=== PATIENT | female | born 1940 | race African-American/Black ===

== ENCOUNTER 2019-01-24 15:59 | Inpatient (IN) | payer MEDICARE ==
[~2019-01-24] VITALS: Ht 162.6 cm; Wt 51.7 kg
--- NOTE | 2019-01-24 16:23 | NUR ---
GABRIELA Staff From [facility] "agressive behavior,combative,dementia here for evaluation". PT CURRENTLY CALM AND COOPERATIVE. AOX3, AMB, VSS, RR EVEN AND UNLABORED. SKIN INTACT, NO ACUTE DISTRESS NOTED. READY FOR EVAL.
[2019-01-24] MEDS ORDERED: ACET325T53 PO (16:46)
[2019-01-24] MEDS ORDERED: ALEN70TA6 PO (16:46)
[2019-01-24] MEDS ORDERED: SENN-18 PO (16:46)
[2019-01-24] MEDS ORDERED: AMLO5TAB9 PO (16:46)
[2019-01-24] MEDS ORDERED: LISI-603 PO (16:46)
[2019-01-24] MEDS ORDERED: DONE5TAB34 PO (16:46)
[2019-01-24] MEDS ORDERED: ATOR10TA PO (16:46)
[2019-01-24] MEDS ORDERED: INSU100V SQ (16:46)
[2019-01-24] MEDS ORDERED: QUET25TA PO (16:53)
[2019-01-24 17:12] LABS: BASOPHILS # (AUTO) 0.1 /CMM (0.0-0.2); BASOPHILS % (AUTO) 0.6 % (0.0-2.0); HEMATOCRIT 45 % (33-45); HEMOGLOBIN 14.8 g/dL (11.5-14.8); LYMPHOCYTES % (AUTO) 11.4 % (20.0-44.0); MEAN CORPUSCULAR HGB CONC 33 g/dl (31.0-36.0); MEAN CORPUSCULAR VOLUME 91 fL (82-100); MONOCYTES # (AUTO) 0.7 /CMM (0.1-1.30); MONOCYTES % (AUTO) 8.3 % (2.0-12.0); NEUTROPHILS # (AUTO) 6.9 /CMM (1.8-8.9); NEUTROPHILS % (AUTO) 78.7 % (43.0-81.0); PLATELET COUNT (AUTO) 178 /CMM (150-450); RED BLOOD CELL COUNT(AUTO) 4.96 MIL/uL (4.0-5.2); WHITE BLOOD COUNT (AUTO) 8.8 K/uL (4.3-11.0)
--- NOTE | 2019-01-24 17:18 | NUR ---
CALLED PINKY CLEARING INSPECTOR, ETA 1 HR
--- NOTE | 2019-01-24 18:30 | NUR ---
Patient is resting comfortably in bed with eyes closed. Easily aroused. VSS
--- NOTE | 2019-01-24 18:52 | NUR ---
REPORT GIVEN TO CHARGE NURSE FOR 218-B
--- NOTE | 2019-01-24 19:30 | NUR ---
PT TRANSFERRED TO FLOOR VIA WC.
--- NOTE | 2019-01-24 20:09 | NUR ---
GPS ADMISSION NOTE, RECEIVED PATIENT FROM [facility] . PATIENT ARRIVED ON THIS UNIT AT 2008 VIA WHEELCHAIR WITH 1 OSD CLERK ESCORT. PATIENT ADMITTED ON A 5150 HOLD FOR GD AND DTO. PER HOLD PATIENT IS ALERT AND ORIENTED X 1, CONFUSED, DISORGANIZED, AND DISORIENTED. ACCORDING TO STAFF AT THE FACILITY PATIENT ATTEMPTED TO LEAVE THE FACILITY. PATIENT HAS BEEN FOUND IN PARKING LOT, STRIKING OUT, AND HITTING STAFF WHEN REDIRECTED BACK IN. PATIENT HAS NO REGAUD FOR HER SAFETY OR THE SAFETY OF OTHERS. PATIENT HAS BEEN REFUSING MEDICATIONS AND IS UNABLE TO CARE FOR SELF. THE 5150 WAS REVIEWED AND THE DOCUMENTATION IN THE 5150 HOLD APPEARS TO REFLECT THE PRESENTATION OF THE PATIENT. UPON FACE TO FACE ASSESSMENT PATIENT IS CURRENTLY LYING IN BED AWAKE, HAS NO S/S OR COMPLAINTS OF PAIN. PATIENT IS DISPLAYING NO S/S OF APPARENT DISTRESS. PATIENT BREATHING IS UNLABORED WITH EQUAL RISE AND FALL OF THE CHEST. PATIENT IS ALERT AND ORIENTATED X 1 ON ROOM AIR. PATIENT ASSISTED WITH TURING AND REPOSITIONING Q2HR AND PRN FOR COMFORT AND CIRCULATION. PATIENT HAS NO NEEDS AT THIS TIME. PATIENT IS NOTED TO BEING ANXIOUS, DISHEVELED, DISORGANIZED, CONFUSED, COOPERATIVE, AND NEEDS REDIRECTION. PATIENT IS CONFUSED DENIES SUICIDE IDEATIONS AND HOMICIDAL IDEATIONS AT THIS TIME. PATIENT IS UNDER THE PSYCHIATRIC CARE OF DR. LAW AND THE MEDICAL CARE OF DR KRUEGER. PATIENT BELONGINGS WERE INVENTORIED AND CHECKED FOR CONTRABAND. ALL CONTRABAND REMOVED AND STORED IN PATIENT HALLWAY LOCKER. PATIENT ADVANCED DIRECTIVES PREFERENCE, IMMUNIZATIONS QUESTIONER, NECESSARY PAPERWORK, AND SKIN ASSESSMENT COMPLETED. PATIENT ORIENTATED TO ROOM, FLOOR, AND STAFF WITH ALL QUESTIONS ANSWERED. PATIENT EDUCATED ON THE USE OF THE CALL MILLER. PATIENT BED SIDE RAILS ARE UP X 2 FOR SAFETY. PATIENT BED IS LOCKED, LOW AND I WILL CONTINUE TO MONITOR THIS PATIENT Q 15 MIN WITH THE HELP OF STAFF TO MAINTAIN SAFETY.
[2019-01-24 20:10] VITALS: BP 152/74
[2019-01-24] MEDS ORDERED: MAGNESIUM HYDROXIDE 30 ML UDC PO PRN (20:30)
[2019-01-24] MEDS ORDERED: MAG HYDROX/AL HYDROX/SIMETH 30 ML UDC PO PRN (20:30)
[2019-01-24] MEDS ORDERED: ACETAMINOPHEN 325 MG TABLET PO PRN ×2 (20:30→23:00)
[2019-01-24] MEDS ORDERED: DEXTROSE 50%-WATER 50 ML DISP.SYRIN IV PRN (23:00)
[2019-01-25] MEDS: BLOOD SUGAR DIAGNOSTIC 1 EACH STRIP IN SCH ×5 (07:52→21:33)
[2019-01-25 08:00] VITALS: BP 124/70
[2019-01-25] MEDS: LISINOPRIL (20MG) 20 MG TABLET PO SCH ×2 (09:00→11:34)
[2019-01-25] MEDS: AMLODIPINE BESYLATE 5 MG TABLET PO SCH ×2 (09:00→11:34)
--- NOTE | 2019-01-25 09:00 | NUR ---
REFUSED BP MEDS.ALLOWED ACCU-CHECK.NOT EATING SO INSULIN HELD.
--- NOTE | 2019-01-25 11:30 | NUR ---
refused accu-check.
--- NOTE | 2019-01-25 11:40 | NUR ---
REFUSED BP MEDS,BP AT THIS TIME 159/94,HEART RATE 118.VERY CONFUSED,KEEPS CHANGING MIND.WANDERING ABOUT FLOOR.WILL ONLY ALLOW RN TO TAKE BP.
[2019-01-25] MEDS: QUETIAPINE FUMARATE 25 MG TABLET PO SCH ×2 (12:00→22:00)
--- NOTE | 2019-01-25 13:00 | NUR ---
refused [facility].dr. arango in.
--- NOTE | 2019-01-25 15:25 | NUR ---
refused lab draw x3.refusing to eat and requesting 2 or 3 different trays at mealtime.
[2019-01-25 16:00] VITALS: BP 134/71
[2019-01-25] MEDS: ATORVASTATIN 10 MG TABLET PO SCH (22:00)
[2019-01-25] MEDS: SENNOSIDES 8.6 MG TABLET PO SCH (22:00)
[2019-01-25 22:15] VITALS: BP 149/75
--- NOTE | 2019-01-25 22:33 | NUR ---
GPS-RN PATIENT REFUSED TO TAKE ALL HER SCHEDULED NIGHT MEDS. PATIENT AGREED TO HAVE HER BLOOD SUGAR CHECK BUT REFUSED INSULIN WITH COVERAGE PER SLIDING SCALE. DESPITE OF EDUCATION ON RISKS AND BENEFITS. OFFERED X3, PATIENT STRONGLY REFUSED. WILL CONTINUE TO MONITOR.
[2019-01-26] MEDS: BLOOD SUGAR DIAGNOSTIC 1 EACH STRIP IN SCH ×4 (07:30→21:16)
[2019-01-26 08:00] VITALS: BP 138/100
[2019-01-26] MEDS: AMLODIPINE BESYLATE 5 MG TABLET PO SCH (08:41)
[2019-01-26] MEDS: LISINOPRIL (20MG) 20 MG TABLET PO SCH (08:41)
[2019-01-26] MEDS: QUETIAPINE FUMARATE 25 MG TABLET PO SCH ×2 (08:42→21:17)
[2019-01-26 16:00] VITALS: BP 127/89
[2019-01-26 19:48] VITALS: BP 137/65
[2019-01-26] MEDS: ATORVASTATIN 10 MG TABLET PO SCH (21:17)
[2019-01-26] MEDS: SENNOSIDES 8.6 MG TABLET PO SCH (21:17)
[2019-01-26] MEDS: TEMAZEPAM 7.5 MG CAPSULE PO PRN (21:21)
--- NOTE | 2019-01-26 21:30 | NUR ---
GPS-RN PATIENT AGREED TO HAVE HER BLOOD SUGAR CHECK BUT REFUSED INSULIN WITH COVERAGE PER SLIDING SCALE. DESPITE OF EDUCATION ON RISKS AND BENEFITS. ATTEMPTED AND OFFERED X3, PATIENT STRONGLY REFUSED. WILL CONTINUE TO MONITOR.
[2019-01-27] MEDS: BLOOD SUGAR DIAGNOSTIC 1 EACH STRIP IN SCH ×4 (07:30→22:00)
[2019-01-27 08:00] VITALS: BP 121/94
[2019-01-27] MEDS: LISINOPRIL (20MG) 20 MG TABLET PO SCH (08:33)
[2019-01-27] MEDS: QUETIAPINE FUMARATE 25 MG TABLET PO SCH ×2 (08:34→22:00)
[2019-01-27] MEDS: AMLODIPINE BESYLATE 5 MG TABLET PO SCH (08:34)
[2019-01-27] MEDS: INSULIN REGULAR, HUMAN 100 UNIT/ML 3 ML VIAL SQ PRN (08:35)
[2019-01-27] MEDS: clonazePAM 0.5 MG TABLET PO PRN (08:40)
[2019-01-27] MEDS ORDERED: OLANZAPINE 10 MG VIAL IM STA (09:12)
--- NOTE | 2019-01-27 09:32 | NUR ---
SW contacted [facility] Address: [address], [place] [address] and left Izabella quality control coordinator a voicemail requesting confirmation for readmission.
--- NOTE | 2019-01-27 09:46 | NUR ---
SW contacted pts Zack [phone] for collateral information and discharge planning. SW also informed that several family members are requesting to speak with SW and discuss pts treatment. SW informed that she is mandated to speak with 1 family member and therefore, she will only speak with regarding pts treatment and discharge. agreed and stated he would relay any information to the rest of the family.
--- NOTE | 2019-01-27 11:00 | NUR ---
SW received a call from Lisa online merchandising coordinator at [facility] Address: [address], [place] [address] stating pt needs a locked facility and therefore they have already referred pt to [facility].
--- NOTE | 2019-01-27 11:02 | NUR ---
SW received a call from judy Syed at [facility] ([facility]) [address] [facility] [address] stating pt has been referred to their facility by [facility]. RAYSHAWN will fax referral once pt is stable.
--- NOTE | 2019-01-27 11:30 | NUR ---
SW received a call from judy Syed at [facility] ([facility]) [id number] [facility] [address] stating pt has been accepted to their facility.
--- NOTE | 2019-01-27 11:54 | NUR ---
INITIAL DISCHARGE PLAN: Patient will be discharged to a locked SNF. Pt has been accepted to [facility] ([facility]) [address] [facility] [address] . [facility] is not able to meet pts needs as she an elopement risk. RAYSHAWN informed pts Zack [phone] who agreed with discharge plan. RAYSHAWN will help form a safe and proper discharge in collaboration with .
[2019-01-27 17:25] VITALS: BP 133/77
--- NOTE | 2019-01-27 19:07 | NUR ---
RN NOTE :PATIENT AGITATED ,YELLING AND SCREAMING ASSAULTIVE HEARING VOICES , NOTIFIED WITH NEW ORDER ZYPREXA 5MG IM X1 .OFFERED PATIENT QUITE TIME ,REDIRECT PATIENT STILL AGITATED ,PATIENT ACCEPT IM INJECTION NO PHYSICAL HOLD .
--- NOTE | 2019-01-27 19:30 | NUR ---
GPS RN NOTE, RECEIVED PATIENT AWAKE AND IN ROOM NO S/S OR COMPLAINTS OF PAIN AT THIS TIME. PATIENT IS DISPLAYING NO S/S OF APPARENT DISTRESS AT THIS TIME. PATIENT BREATHING IS UNLABORED WITH EQUAL RISE AND FALL OF THE CHEST. PATIENT IS ALERT AND ORIENTED X 1 ON ROOM AIR WITH A SPO2 OF 97%. PATIENT IS MED SELECTIVE, CONFUSED, DISORGANIZED, ANXIOUS, UNCOOPERATIVE, UNKEPT, YELLING, SCREAMING, DEMANDING, AND NEEDS REORIENTATION. PATIENT IS CONFUSED BUT DENIES SUICIDE AND HOMICIDAL IDEATIONS AT THIS TIME. PATIENT ASSISTED WITH TURNING AND REPOSITIONING Q2HR AND PRN FOR COMFORT AND CIRCULATION. PATIENT HAS NO NEEDS AT THIS TIME. PATIENT EDUCATED ON THE USE OF THE CALL MILLER. PATIENT BED SIDE RAILS ARE UP X 2 FOR SAFETY, BED IS LOCKED AND LOW. WILL CONTINUE TO MONITOR AND MAINTAIN SAFETY Q15 MIN WITH THE HELP OF STAFF.
[2019-01-27] MEDS: ATORVASTATIN 10 MG TABLET PO SCH (22:00)
[2019-01-27] MEDS: SENNOSIDES 8.6 MG TABLET PO SCH (22:00)
--- NOTE | 2019-01-27 22:02 | NUR ---
GPS RN NOTE, PATIENT REFUSED HER ACCU CHECK, LIPITOR 10 MG PO HS, SENOKOT 8.6 MG PO HS, AND SEROQUEL 25MG PO HS. OFFERED AFOREMENTIONED THREE TIMES AND STILL PATIENT REFUSED STATING, " I DON'T TAKE MANY PILLS ANY MORE, NOW LEAVE ME ALONE ". EDUCATED PATIENT ON THE RISKS AND BENEFITS OF TAKING AND REFUSING MEDICATION. WILL CONTINUE TO MONITOR THIS PATIENT.
[2019-01-28] MEDS: BLOOD SUGAR DIAGNOSTIC 1 EACH STRIP IN SCH ×4 (07:30→22:13)
[2019-01-28 08:00] VITALS: BP 138/58
[2019-01-28] MEDS: LISINOPRIL (20MG) 20 MG TABLET PO SCH ×2 (08:49→09:00)
[2019-01-28] MEDS: QUETIAPINE FUMARATE 25 MG TABLET PO SCH ×3 (08:49→22:00)
[2019-01-28] MEDS: AMLODIPINE BESYLATE 5 MG TABLET PO SCH ×2 (08:49→09:00)
[2019-01-28] MEDS ORDERED: OLANZAPINE 10 MG VIAL IM STA (12:16)
--- NOTE | 2019-01-28 15:10 | NUR ---
SUPPORTIVE COUNSELING: Pt is cognitively impaired and has lack of insight. Pt has been screaming and yelling and refusing to take medication. Pt received an IM on this present day for altered mental state. Pt is verbally and physically aggressive with staff and SW.
[2019-01-28 16:00] VITALS: BP 141/95
[2019-01-28] MEDS: METFORMIN 500 MG TABLET PO SCH (16:30)
--- NOTE | 2019-01-28 19:30 | NUR ---
GPS RN NOTE, RECEIVED PATIENT AWAKE AND IN ROOM NO S/S OR COMPLAINTS OF PAIN AT THIS TIME. PATIENT IS DISPLAYING NO S/S OF APPARENT DISTRESS AT THIS TIME. PATIENT BREATHING IS UNLABORED WITH EQUAL RISE AND FALL OF THE CHEST. PATIENT IS ALERT AND ORIENTED X 1 ON ROOM AIR WITH A SPO2 OF 96%. PATIENT IS MED SELECTIVE, CONFUSED, DISORGANIZED, ANXIOUS, UNCOOPERATIVE, UNKEPT, YELLING, SCREAMING, DEMANDING, AND NEEDS REORIENTATION. PATIENT IS CONFUSED BUT DENIES SUICIDE AND HOMICIDAL IDEATIONS AT THIS TIME. PATIENT ASSISTED WITH TURNING AND REPOSITIONING Q2HR AND PRN FOR COMFORT AND CIRCULATION. PATIENT HAS NO NEEDS AT THIS TIME. PATIENT EDUCATED ON THE USE OF THE CALL MILLER. PATIENT BED SIDE RAILS ARE UP X 2 FOR SAFETY, BED IS LOCKED AND LOW. WILL CONTINUE TO MONITOR AND MAINTAIN SAFETY Q15 MIN WITH THE HELP OF STAFF.
[2019-01-28 20:08] VITALS: BP 150/57
--- NOTE | 2019-01-28 20:53 | NUR ---
GPS RN NOTE, PERFORMED ACCU CHECK ON PATIENT WITH A BLOOD SUGAR RESULT OF 128. GAVE NO INSULIN PER SLIDING SCALE. GAVE SAND WITCH AND AND JUICE A SNACK. WILL CONTINUE TO MONITOR THIS PATIENT.
[2019-01-28] MEDS: SENNOSIDES 8.6 MG TABLET PO SCH (22:00)
[2019-01-28] MEDS: ATORVASTATIN 10 MG TABLET PO SCH (22:00)
--- NOTE | 2019-01-28 22:16 | NUR ---
GPS RN NOTE, PATIENT REFUSED LIPITOR 10 MG PO HS, SENOKOT 8.6 MG PO HS, AND SEROQUEL 25MG PO HS. OFFERED AFOREMENTIONED THREE TIMES AND STILL PATIENT REFUSED STATING, " I DON'T TAKE MANY PILLS ANY MORE, NOW LEAVE ME ALONE ". EDUCATED PATIENT ON THE RISKS AND BENEFITS OF TAKING AND REFUSING MEDICATION. WILL CONTINUE TO MONITOR THIS PATIENT.
[2019-01-29] MEDS: BLOOD SUGAR DIAGNOSTIC 1 EACH STRIP IN SCH ×4 (07:30→21:06)
[2019-01-29] MEDS: METFORMIN 500 MG TABLET PO SCH ×2 (08:40→16:09)
[2019-01-29 08:43] VITALS: BP 149/80
[2019-01-29] MEDS: QUETIAPINE FUMARATE 25 MG TABLET PO SCH ×2 (08:43→21:06)
[2019-01-29] MEDS: LISINOPRIL (20MG) 20 MG TABLET PO SCH ×2 (08:43→16:09)
[2019-01-29] MEDS: AMLODIPINE BESYLATE 5 MG TABLET PO SCH (08:43)
--- NOTE | 2019-01-29 13:30 | NUR ---
RN-CO: DR LAW MADE AWARE ABOUT THE [facility] AND [facility]IESE AT 1400 01/30.
--- NOTE | 2019-01-29 15:50 | NUR ---
GROUP NOTE: Pt not appropriate on this present day to participate in group therapy as pt is refusing medication and has altered mental state along with confusion, disorientation, and disorganized thinking.
[2019-01-29 16:00] VITALS: BP 162/80
--- NOTE | 2019-01-29 16:15 | NUR ---
RAYSHAWN received a call from Zakia, outdoor emergency care technician at Dr. Dorothy Parekh, Address: [address] [place] [address] [address], [place] [address] office and requested discharge information. RAYSHAWN informed her pt is still hospitalize and will be discharging to a SNF once stable for discharge.
[2019-01-29 19:48] VITALS: BP 144/69
[2019-01-29] MEDS: ATORVASTATIN 10 MG TABLET PO SCH (21:06)
[2019-01-29] MEDS: SENNOSIDES 8.6 MG TABLET PO SCH (21:06)
[2019-01-30] MEDS: BLOOD SUGAR DIAGNOSTIC 1 EACH STRIP IN SCH ×4 (07:30→22:00)
[2019-01-30 08:00] VITALS: BP 150/85
[2019-01-30] MEDS: METFORMIN 500 MG TABLET PO SCH ×2 (09:23→16:41)
[2019-01-30] MEDS: QUETIAPINE FUMARATE 25 MG TABLET PO SCH ×2 (09:23→16:41)
[2019-01-30] MEDS: LISINOPRIL (20MG) 20 MG TABLET PO SCH (09:24)
[2019-01-30] MEDS: AMLODIPINE BESYLATE 5 MG TABLET PO SCH (09:24)
--- NOTE | 2019-01-30 09:30 | NUR ---
GPS/RN PT WAS VERY RESISTIVE TO TAKE MEDICATION. IT TOOK 15-20 MIN FOR THE MAINTENANCE SHOP LABORER OF THIS NOTE TO TALK PT INTO TAKING MEDS.
--- NOTE | 2019-01-30 13:05 | NUR ---
GPS/RN PT REFUSED ACCUCHECK IN AM AND FOR 1200 WELL. OFFERED X3.
[2019-01-30] MEDS ORDERED: OLANZAPINE 10 MG VIAL IM SCH (14:30)
--- NOTE | 2019-01-30 15:51 | NUR ---
RN-CO:Patient refused lab works, explained the risk and benefits but still refused.
[2019-01-30 16:00] VITALS: BP 166/93
[2019-01-30] MEDS: OLANZAPINE 10 MG VIAL IM PRN (16:40)
--- NOTE | 2019-01-30 17:09 | NUR ---
GPS/RN PT GIVEN ZYPREXA 5MG IM FOR REFUSAL OF ORAL SEROQUEL. PT REFUSED ACCUCHECK SCHEDULED FOR 1730 OFFERED X3
[2019-01-30 20:00] VITALS: BP 131/97
[2019-01-30] MEDS: SENNOSIDES 8.6 MG TABLET PO SCH (22:00)
[2019-01-30] MEDS: ATORVASTATIN 10 MG TABLET PO SCH (22:00)
--- NOTE | 2019-01-30 22:32 | NUR ---
GPS/DIRECTOR OF DIETARY NOTES: PT. REF. HS MEDS AND HS ACCUCHECKS. OFFERED 3X. EXPLAINED RISK AND BENEFITS. PT. STILL REFUSED. WILL CONTINUE TO MONITOR.
[2019-01-31] MEDS: BLOOD SUGAR DIAGNOSTIC 1 EACH STRIP IN SCH ×4 (07:30→21:04)
[2019-01-31 08:00] VITALS: BP 154/90
[2019-01-31] MEDS: QUETIAPINE FUMARATE 25 MG TABLET PO SCH ×2 (09:00→16:38)
[2019-01-31] MEDS: OLANZAPINE 10 MG VIAL IM PRN (09:09)
[2019-01-31] MEDS: METFORMIN 500 MG TABLET PO SCH ×2 (09:52→16:38)
[2019-01-31] MEDS: LISINOPRIL (20MG) 20 MG TABLET PO SCH (09:52)
[2019-01-31] MEDS: AMLODIPINE BESYLATE 5 MG TABLET PO SCH (09:53)
[2019-01-31] MEDS: INSULIN REGULAR, HUMAN 100 UNIT/ML 3 ML VIAL SQ PRN ×3 (10:03→18:37)
--- NOTE | 2019-01-31 12:45 | NUR ---
RN NOTE: PATIENT'S 12:00 BS WAS 153. PATIENT REFUSED COVERAGE.
--- NOTE | 2019-01-31 15:55 | NUR ---
Pt came into the social service office on this present day and was agitated and became aggressive with SW pt began throwing objects off SW's desk and required pt to be restrained chemically.
[2019-01-31 16:00] VITALS: BP 141/61
--- NOTE | 2019-01-31 18:38 | NUR ---
RN NOTE: PATIENT REFUSED 17:30 ACCUCHECK. INSULIN DOSE MISSED D/T REFUSAL.
[2019-01-31 20:02] VITALS: BP 146/84
--- NOTE | 2019-01-31 21:30 | NUR ---
REFUSED TO HAVE ACCUCHECK "DONT STICK ME WITH THAT" GET AWAY" ATTEMPTED LATER AND SHE STILL BECAME ANGRY OVER THE IDEA SHE WOULD NEED TO HAVE HER FINGER STUCK. SHE DID TAKE HER PO MEDICATION
[2019-01-31] MEDS: SENNOSIDES 8.6 MG TABLET PO SCH (22:15)
[2019-01-31] MEDS: TEMAZEPAM 7.5 MG CAPSULE PO PRN (22:15)
[2019-01-31] MEDS: ATORVASTATIN 10 MG TABLET PO SCH (22:15)
--- NOTE | 2019-02-01 06:29 | NUR ---
CLOSING NOTES: AFTER SITTING IN THE DINING ROOM IN A CHAIR ASSISSTED BACK TO BED SHE WAS ABLE TO AMBULATE TO HER BED FROM THE PARKED CHAIR. SLOW WOBBLY GAIT. SHE REFUSE THE ACCUCHECK BUT WAS COOPERATIVE ABOUT TAKING PO MEDICATIONS. SLEPT FOR 5 HOURS
[2019-02-01] MEDS: BLOOD SUGAR DIAGNOSTIC 1 EACH STRIP IN SCH ×4 (07:30→21:16)
--- NOTE | 2019-02-01 07:53 | NUR ---
GPS/RN PT REFUSED ACCUCHECK. KEEPS ON WALKING INTO OTHER PATIENTS ROOMS. REORIENTED, OFFERED MEDICATION TO CALM HER DOWN BUT PT REFUSED AT THIS TIME.
[2019-02-01 08:00] VITALS: BP 144/69
[2019-02-01] MEDS: METFORMIN 500 MG TABLET PO SCH ×2 (08:03→17:00)
[2019-02-01] MEDS: AMLODIPINE BESYLATE 5 MG TABLET PO SCH (08:03)
[2019-02-01] MEDS: LISINOPRIL (20MG) 20 MG TABLET PO SCH (08:04)
[2019-02-01] MEDS: QUETIAPINE FUMARATE 25 MG TABLET PO SCH ×2 (08:04→17:00)
[2019-02-01] MEDS: OLANZAPINE 10 MG VIAL IM PRN ×2 (08:28→17:46)
[2019-02-01] MEDS: DIVALPROEX SODIUM 125 MG CAP.SPRINK PO SCH ×2 (09:30→21:16)
--- NOTE | 2019-02-01 12:07 | NUR ---
GPS/RN PT REFUSED ACCUCHECK OFFERED X3. PT REMAINS IRRITABLE.
[2019-02-01 16:00] VITALS: BP 132/71
[2019-02-01 20:00] VITALS: BP 155/96
[2019-02-01] MEDS: SENNOSIDES 8.6 MG TABLET PO SCH (21:16)
[2019-02-01] MEDS: ATORVASTATIN 10 MG TABLET PO SCH (21:16)
[2019-02-01] MEDS: TEMAZEPAM 7.5 MG CAPSULE PO PRN (22:08)
[2019-02-02] MEDS: BLOOD SUGAR DIAGNOSTIC 1 EACH STRIP IN SCH ×4 (07:30→22:00)
--- NOTE | 2019-02-02 07:30 | NUR ---
PATIENT REFUSED ACCU -CHECK
[2019-02-02 08:00] VITALS: BP 156/89
[2019-02-02] MEDS: METFORMIN 500 MG TABLET PO SCH ×2 (08:25→16:55)
[2019-02-02] MEDS: LISINOPRIL (20MG) 20 MG TABLET PO SCH (08:25)
[2019-02-02] MEDS: AMLODIPINE BESYLATE 5 MG TABLET PO SCH (08:25)
[2019-02-02] MEDS: QUETIAPINE FUMARATE 25 MG TABLET PO SCH (08:25)
[2019-02-02] MEDS: DIVALPROEX SODIUM 125 MG CAP.SPRINK PO SCH (08:26)
--- NOTE | 2019-02-02 09:20 | NUR ---
IM ZYPREXA GIVEN DUE TO PATIENT REFUSED PO AM MEDS.
[2019-02-02] MEDS: OLANZAPINE 10 MG VIAL IM PRN (09:43)
[2019-02-02] MEDS: VALPROIC ACID 250 MG/5 ML UDC PO SCH ×2 (12:01→21:33)
--- NOTE | 2019-02-02 16:00 | NUR ---
PATIENT REFUSED VS FOR 1600
--- NOTE | 2019-02-02 16:57 | NUR ---
PATIENT REFUSED ACCU-CHECK
--- NOTE | 2019-02-02 18:04 | NUR ---
SITTING IN THE DINING ROOM IN A CHAIR EATING DINNER. PT REFUSED HER PO MEDS , ACCU-CHECK AND VS. EDUCATION PROVIDED; REINFORCEMENT NEEDED.
[2019-02-02 19:44] VITALS: BP 199/88
[2019-02-02] MEDS: ATORVASTATIN 10 MG TABLET PO SCH (21:33)
[2019-02-02] MEDS: OLANZAPINE 5 MG/TAB.RAPDIS PO SCH (21:33)
[2019-02-02] MEDS: SENNOSIDES 8.6 MG TABLET PO SCH (21:33)
[2019-02-03 08:00] VITALS: BP 144/66
[2019-02-03] MEDS: VALPROIC ACID 250 MG/5 ML UDC PO SCH ×2 (08:15→21:00)
[2019-02-03] MEDS: BLOOD SUGAR DIAGNOSTIC 1 EACH STRIP IN SCH ×4 (08:39→22:00)
[2019-02-03] MEDS: METFORMIN 500 MG TABLET PO SCH ×2 (08:55→17:14)
[2019-02-03] MEDS: AMLODIPINE BESYLATE 5 MG TABLET PO SCH (08:55)
[2019-02-03] MEDS: OLANZAPINE 5 MG/TAB.RAPDIS PO SCH ×2 (08:56→22:00)
[2019-02-03] MEDS: LISINOPRIL (20MG) 20 MG TABLET PO SCH (08:56)
[2019-02-03] MEDS: OLANZAPINE 10 MG VIAL IM PRN (09:00)
--- NOTE | 2019-02-03 09:15 | NUR ---
RN NOTE: PATIENT REFUSED PO ZYPREXA. 2.5MG OF ZYPREXA GIVEN IM.
--- NOTE | 2019-02-03 10:02 | NUR ---
RAYSHAWN spoke with pts daughter Michell [phone] regarding pts progress and discharge plan. RAYSHAWN informed daughter that pt continues to refuse PO medication and is receiving injections. RAYSHAWN informed her that pt continues to have behavioral disturbances and that MD is making medication adjustments. Daughter stated that she is aware of pts behavior and wishes for her to be placed at a facility that is able to handle pts behavior. RAYSHAWN informed daughter that pt has been accepted to [facility] and that the facility is locked and only accepts pts with Dementia/Alzheimer and that they are able to handle pts behavior. Daughter agrees to placement and said that she just wishes for pt to get better as she stated pt has been , "out of control."
[2019-02-03] MEDS: INSULIN REGULAR, HUMAN 100 UNIT/ML 3 ML VIAL SQ PRN (12:25)
[2019-02-03] MEDS ORDERED: HALOPERIDOL LACTATE INJ 5 MG/ML VIAL IM SCH (15:00)
--- NOTE | 2019-02-03 16:06 | NUR ---
SUPPORTIVE COUNSELING: Pt remains labile and aggressive. Pt refuses PO medication and her behavior is unpredictable. SW unable to have a meaningful conversation with pt as she is alert and oriented x1.
[2019-02-03 17:09] VITALS: BP 101/65
[2019-02-03] MEDS ORDERED: HALOPERIDOL LACTATE INJ 5 MG/ML VIAL IM PRN (17:30)
[2019-02-03 19:59] VITALS: BP 145/64
[2019-02-03] MEDS: ATORVASTATIN 10 MG TABLET PO SCH (22:00)
[2019-02-03] MEDS: SENNOSIDES 8.6 MG TABLET PO SCH (22:00)
[2019-02-04 08:00] VITALS: BP 140/79
[2019-02-04] MEDS: VALPROIC ACID 250 MG/5 ML UDC PO SCH ×2 (08:31→21:31)
[2019-02-04] MEDS: OLANZAPINE 5 MG/TAB.RAPDIS PO SCH ×2 (08:31→21:28)
[2019-02-04] MEDS: METFORMIN 500 MG TABLET PO SCH ×2 (08:31→16:24)
[2019-02-04] MEDS: BLOOD SUGAR DIAGNOSTIC 1 EACH STRIP IN SCH ×4 (08:31→22:00)
[2019-02-04] MEDS: LISINOPRIL (20MG) 20 MG TABLET PO SCH (08:32)
[2019-02-04] MEDS: AMLODIPINE BESYLATE 5 MG TABLET PO SCH (08:32)
[2019-02-04] MEDS: INSULIN REGULAR, HUMAN 100 UNIT/ML 3 ML VIAL SQ PRN (08:46)
--- NOTE | 2019-02-04 14:44 | NUR ---
RAYSHAWN faxed clinical information to judy Syed at [facility] ([facility]) [address] [facility] [address] .
--- NOTE | 2019-02-04 15:20 | NUR ---
GROUP THERAPY: Pt is unable to participant in group therapy as pt is confused, disoriented, and disorganized. Pt is only alert and oriented to self pt is unable to follow instructions or sit in a group setting.
[2019-02-04 16:00] VITALS: BP 138/80
[2019-02-04 20:13] VITALS: BP 146/82
[2019-02-04] MEDS: ATORVASTATIN 10 MG TABLET PO SCH (21:28)
[2019-02-04] MEDS: SENNOSIDES 8.6 MG TABLET PO SCH (21:29)
[2019-02-05] MEDS: BLOOD SUGAR DIAGNOSTIC 1 EACH STRIP IN SCH ×4 (07:36→22:45)
[2019-02-05] MEDS: INSULIN REGULAR, HUMAN 100 UNIT/ML 3 ML VIAL SQ PRN ×2 (07:36→22:47)
[2019-02-05 08:00] VITALS: BP 120/51
[2019-02-05] MEDS: VALPROIC ACID 250 MG/5 ML UDC PO SCH ×2 (08:26→21:39)
[2019-02-05] MEDS: OLANZAPINE 5 MG/TAB.RAPDIS PO SCH ×2 (08:26→21:40)
[2019-02-05] MEDS: AMLODIPINE BESYLATE 5 MG TABLET PO SCH (08:26)
[2019-02-05] MEDS: LISINOPRIL (20MG) 20 MG TABLET PO SCH (08:26)
[2019-02-05] MEDS: METFORMIN 500 MG TABLET PO SCH ×2 (08:26→16:15)
--- NOTE | 2019-02-05 14:24 | NUR ---
Group note: Pt is unable to participant in group therapy as pt is confused, disoriented, and disorganized. Pt is only alert and oriented to self pt is unable to follow instructions or sit in a group setting.
[2019-02-05 20:33] VITALS: BP 101/45
[2019-02-05] MEDS: ATORVASTATIN 10 MG TABLET PO SCH (21:40)
[2019-02-05] MEDS: SENNOSIDES 8.6 MG TABLET PO SCH (21:41)
[2019-02-05 23:00] VITALS: BP 108/62
[2019-02-06 08:00] VITALS: BP 128/64
[2019-02-06] MEDS: BLOOD SUGAR DIAGNOSTIC 1 EACH STRIP IN SCH ×4 (08:45→22:00)
[2019-02-06] MEDS: OLANZAPINE 5 MG/TAB.RAPDIS PO SCH ×2 (08:46→21:13)
[2019-02-06] MEDS: AMLODIPINE BESYLATE 5 MG TABLET PO SCH (08:48)
[2019-02-06] MEDS: LISINOPRIL (20MG) 20 MG TABLET PO SCH (08:48)
[2019-02-06] MEDS: VALPROIC ACID 250 MG/5 ML UDC PO SCH ×2 (08:49→21:13)
[2019-02-06] MEDS: METFORMIN 500 MG TABLET PO SCH ×2 (08:51→17:00)
--- NOTE | 2019-02-06 11:45 | NUR ---
REFUSED ACCUCHECK OFFERED X3, "NO! GET AWAY! DON'T STICK ME!", PATIENT YELLED.
[2019-02-06 16:00] VITALS: BP 114/56
--- NOTE | 2019-02-06 17:12 | NUR ---
PATIENT REFUSED ACCUCHECK AND METFORMIN. EXPLAINED RISK AND BENEFIT BUT STILL REFUSED. YELLED "NO!".
[2019-02-06 20:00] VITALS: BP 131/57
[2019-02-06] MEDS: ATORVASTATIN 10 MG TABLET PO SCH (21:13)
[2019-02-06] MEDS: SENNOSIDES 8.6 MG TABLET PO SCH (21:13)
--- NOTE | 2019-02-06 22:00 | NUR ---
GPS RN NOTES :PATIENT REFUSED ACCU CHECK . EXPLAINED RISK AND BENEFIT BUT STILL REFUSED.
[2019-02-07] MEDS: clonazePAM 0.5 MG TABLET PO PRN (03:48)
--- NOTE | 2019-02-07 03:52 | NUR ---
GPS RN NOTES :PT.NOTED VERY AGGRESSIVE PACING IN HALLWAY SCRAMING YELLING NOT FOLLOWING ANY REDIRECTIONS, KLONOPIN 0.5 MG PO PRN GIVEN, WILL CONTINUE TO MONITOR.
[2019-02-07] MEDS: BLOOD SUGAR DIAGNOSTIC 1 EACH STRIP IN SCH ×4 (07:51→21:22)
[2019-02-07 08:00] VITALS: BP 123/81
[2019-02-07] MEDS: INSULIN REGULAR, HUMAN 100 UNIT/ML 3 ML VIAL SQ PRN ×2 (08:20→21:20)
[2019-02-07] MEDS: AMLODIPINE BESYLATE 5 MG TABLET PO SCH (08:21)
[2019-02-07] MEDS: METFORMIN 500 MG TABLET PO SCH ×2 (08:21→17:00)
[2019-02-07] MEDS: VALPROIC ACID 250 MG/5 ML UDC PO SCH ×2 (08:21→21:22)
[2019-02-07] MEDS: LISINOPRIL (20MG) 20 MG TABLET PO SCH (08:22)
[2019-02-07] MEDS: OLANZAPINE 5 MG/TAB.RAPDIS PO SCH ×3 (08:25→21:28)
[2019-02-07 16:00] VITALS: BP 113/59
[2019-02-07 20:00] VITALS: BP 128/96
[2019-02-07] MEDS: ATORVASTATIN 10 MG TABLET PO SCH (21:22)
[2019-02-07] MEDS: SENNOSIDES 8.6 MG TABLET PO SCH (21:22)
--- NOTE | 2019-02-07 21:24 | NUR ---
GPS RN NOTES :PATIENT BLOOD SUGAR 208 REFUSED COVERAGE, ENCOURAGED EXPLAINED RISK AND BENEFIT BUT STILL REFUSED.
[2019-02-08] MEDS: BLOOD SUGAR DIAGNOSTIC 1 EACH STRIP IN SCH ×4 (07:30→21:12)
[2019-02-08 08:00] VITALS: BP 100/97
[2019-02-08] MEDS: VALPROIC ACID 250 MG/5 ML UDC PO SCH (08:10)
[2019-02-08] MEDS: METFORMIN 500 MG TABLET PO SCH ×2 (08:10→16:27)
[2019-02-08] MEDS: OLANZAPINE 5 MG/TAB.RAPDIS PO SCH ×2 (08:11→21:13)
[2019-02-08] MEDS: LISINOPRIL (20MG) 20 MG TABLET PO SCH (08:14)
[2019-02-08] MEDS: AMLODIPINE BESYLATE 5 MG TABLET PO SCH (08:14)
--- NOTE | 2019-02-08 11:55 | NUR ---
GPS RN NOTE: PT WAS SEEN AND EXAMINE BY DR. ARRINGTON . MD NOTIFIED PT RIGHT PINK EYE,NEW ORDER TO MONITOR FOR ANY DISCHARGES WILL CONTINUE MONITORING
[2019-02-08 16:00] VITALS: BP 113/61
[2019-02-08] MEDS ORDERED: DIVALPROEX SODIUM 250 MG TABLET.DR PO SCH (17:00)
--- NOTE | 2019-02-08 20:00 | NUR ---
GPS RN NOTES: PT. REFUSED VITAL SIGNS , ENCOURAGED EXPLINED RISKS AND BENEFITS ,BUT STILL REFUSED.
[2019-02-08] MEDS: DIVALPROEX SODIUM 250 MG TABLET.DR PO SCH (21:12)
[2019-02-08] MEDS: ATORVASTATIN 10 MG TABLET PO SCH (21:12)
[2019-02-08] MEDS: SENNOSIDES 8.6 MG TABLET PO SCH (21:13)
--- NOTE | 2019-02-08 21:51 | NUR ---
GPS RN NOTES :PATIENT REFUSED ACCU CHECK, ENCOURAGED EXPLAINED RISK AND BENEFIT BUT PT. STRONGLY REFUESD , PT. STATES I NO NEED CHECK MY BLOOD SUGAR IS FINE,PT. BEHAVIOR VERY UNCOOPERTIVE .
[2019-02-09 08:00] VITALS: BP 126/65
[2019-02-09] MEDS: BLOOD SUGAR DIAGNOSTIC 1 EACH STRIP IN SCH ×4 (08:28→22:00)
[2019-02-09] MEDS: METFORMIN 500 MG TABLET PO SCH ×2 (08:28→17:17)
[2019-02-09] MEDS: OLANZAPINE 5 MG/TAB.RAPDIS PO SCH ×2 (08:29→21:48)
[2019-02-09] MEDS: DIVALPROEX SODIUM 250 MG TABLET.DR PO SCH (08:30)
[2019-02-09] MEDS: LISINOPRIL (20MG) 20 MG TABLET PO SCH (08:30)
[2019-02-09] MEDS: AMLODIPINE BESYLATE 5 MG TABLET PO SCH (08:30)
[2019-02-09] MEDS: DIVALPROEX SODIUM 125 MG CAP.SPRINK PO SCH ×3 (09:41→21:48)
[2019-02-09] MEDS: INSULIN REGULAR, HUMAN 100 UNIT/ML 3 ML VIAL SQ PRN ×2 (09:47→12:25)
[2019-02-09 16:00] VITALS: BP 124/54
[2019-02-09 20:14] VITALS: BP 133/62
[2019-02-09] MEDS: ATORVASTATIN 10 MG TABLET PO SCH (21:47)
[2019-02-09] MEDS: SENNOSIDES 8.6 MG TABLET PO SCH (21:47)
[2019-02-10] MEDS: BLOOD SUGAR DIAGNOSTIC 1 EACH STRIP IN SCH ×2 (07:27→12:00)
[2019-02-10 08:00] VITALS: BP 125/65
[2019-02-10] MEDS: METFORMIN 500 MG TABLET PO SCH (08:47)
[2019-02-10] MEDS: OLANZAPINE 5 MG/TAB.RAPDIS PO SCH (08:47)
[2019-02-10] MEDS: DIVALPROEX SODIUM 125 MG CAP.SPRINK PO SCH (08:47)
[2019-02-10 08:48] VITALS: BP 125/65
[2019-02-10] MEDS: LISINOPRIL (20MG) 20 MG TABLET PO SCH (08:48)
[2019-02-10] MEDS: AMLODIPINE BESYLATE 5 MG TABLET PO SCH (08:48)
--- NOTE | 2019-02-10 09:25 | NUR ---
gps cotton dispatcher: notes dr. arango here and with order to d'c pt to [facility] per cn. order carried by karime.
--- NOTE | 2019-02-10 09:31 | NUR ---
RAYSHAWN contacted pts daughter Michell [phone] and informed her pt is discharging on this present day. Daughter agreed with discharge plan to [facility].
--- NOTE | 2019-02-10 10:30 | NUR ---
gps talent scout: notes dr. walter here and made aware re: d'c to snf. med reconciliation done by .
--- NOTE | 2019-02-10 11:20 | NUR ---
gps refrigerator assembler: notes report given to nasreen (rn) at [facility] for continuity of care.
--- NOTE | 2019-02-10 12:00 | NUR ---
gps magazine publisher: notes pt unable to sign d'c papers due to cognitive impairment. 2 license staff signed all d'c papers. pt stable for discharge. denies si/hi at this time. denies auditory/visual hallucinations at this time. eta of citrus picker at 1300 per social studies teacher. pt made aware. will continue to monitor.
--- NOTE | 2019-02-10 13:15 | NUR ---
gps plant operations manager: notes ambulance here and report given to one of the crew.
--- NOTE | 2019-02-10 13:19 | NUR ---
gps fly winder: discharged discharge to snf via ambulance in stable condition with d'c papers and belongings.
--- NOTE | 2019-02-10 13:40 | NUR ---
DISCHARGE PLAN: Pt was discharged at 1:00pm via [facility] to [facility] ([facility]) [id number] [facility] [id number] . Pts daughter Michell [phone] has been notified and agrees with discharge plan. Pts mood was lethargic with congruent affect. Pt denied visual/auditory hallucinations and denied suicidal/homicidal ideation. Pt will be under the care of Psychiatrist: Dr. Justino Sheets, [address] [place] [address]. [place] [address]; and Rating Specialist: Dr. Hieu Atkinson Address: [address] [place] [id number] . The multidisciplinary exitcare form was done, printed, signed, and given to the patient.
== END 2019-02-10 13:20 | DRG 885 ==
LOC: ER 15:59 → GPS 18:53
PROVIDERS: ADMIT Psychiatry & Neurology Psychiatry; ATTEND Family Medicine
DX: F29 Unspecified psychosis not due to a substance or known physiological condition (principal); E11.65 Type 2 diabetes mellitus with hyperglycemia; F03.91 Unspecified dementia, unspecified severity, with behavioral disturbance; Z91.83 Wandering in diseases classified elsewhere; Z79.4 Long term (current) use of insulin; M81.0 Age-related osteoporosis without current pathological fracture; I10 Essential (primary) hypertension; B30.9 Viral conjunctivitis, unspecified; Z73.6 Limitation of activities due to disability; E78.5 Hyperlipidemia, unspecified; Z79.899 Other long term (current) drug therapy; Z88.2 Allergy status to sulfonamides; Z88.8 Allergy status to other drugs, medicaments and biological substances; Z91.041 Radiographic dye allergy status; Z91.013 Allergy to seafood
CPT/HCPCS: 36415; 80048-TC; 80076-TC; 80164-TC; 82962-TC; 85025-TC; 87081-TC; G0480; J1630; J1815; J3490